=== PATIENT | male | born 1975 | race Caucasian/White ===

== ENCOUNTER 2017-04-13 09:43 | Observation (INO) | payer BC ==
[2017-04-13] VITALS (11 sets, daily range): BP systolic 122–172; BP diastolic 76–100; PULSE 50–72; RESP 15–18; TEMP 97.6–98.1; O2SAT 96–98
[~2017-04-13] VITALS: Ht 165.1 cm; Wt 90.0 kg
[2017-04-13] MEDS ORDERED: ASPIRIN 81 MG CHEW TAB PO ONE (10:30)
[2017-04-13] MEDS ORDERED: NITROGLYCERIN 2% OINT 1 GM PACKET TOP ONE (10:30)
[2017-04-13] MEDS ORDERED: SODIUM CHLORIDE 0.9% FLUSH 10 ML FLUSH IVF PRN (10:30)
[2017-04-13] MEDS ORDERED: MORPHINE SULFATE 4 MG/ML INJ IV PUSH ONE (10:30)
--- NOTE | 2017-04-13 10:38 | RADRPT ---
EXAM DATE/TIME: 04/13/2017 10:11 [place] COMPARISON: No previous studies available for comparison. INDICATIONS : Chest pain. Patient c/o burning in chest, and also was feeling dizziness. MEDICAL HISTORY : None. SURGICAL HISTORY : None. ENCOUNTER: Initial ACUITY: 1 day PAIN SCORE: 0/10 LOCATION: Bilateral chest FINDINGS: A single view of the chest demonstrates the lungs to be symmetrically aerated without evidence of mas s, infiltrate or effusion. Mild elevation of the right hemidiaphragm. The cardiomediastinal contours are unremarkable. Osseous structures are intact. CONCLUSION: No acute disease. Edvin Mcdonnell Jr., MD on April 13, 2017 at 10:31 Board Certified Radiologist. This report was verified electronically.
[2017-04-13 10:39] LABS: AUTOMATED NEUTROPHIL # 4.4 TH/MM3 (1.8-7.7); BASOPHIL % 0.6 % (0.0-2.0); EOSINOPHIL # 0.1 TH/MM3 (0-0.4); EOSINOPHIL % 1.8 % (0.0-4.0); HEMATOCRIT 42.1 % (39.0-51.0); HEMO FLAGS DIFF FINAL; LYMPH % 34.3 % (9.0-44.0); LYMPHOCYTE # 2.8 TH/MM3 (1.0-4.8); MEAN CELL VOLUME 89.8 FL (80.0-100.0); MEAN CORPUSCULAR HEMOGLOBIN 30.6 PG (27.0-34.0); MEAN CORPUSCULAR HGB CONC 34.1 % (32.0-36.0); MONO % 9.8 % (0.0-8.0); NEUT % 53.5 % (16.0-70.0); PLATELET COUNT 233 TH/MM3 (150-450); RED BLOOD COUNT 4.69 MIL/MM3 (4.50-5.90); RED CELL DISTRIBUTION WIDTH 13.4 % (11.6-17.2); WHITE BLOOD COUNT 8.2 TH/MM3 (4.0-11.0)
--- NOTE | 2017-04-13 10:43 | PD ---
HPI . Lightheadedness Chief Complaint: Dizziness Time Seen by Provider: 10:16 Travel History International Travel<30 days: No Contact w/Intl Traveler<30days: No Traveled to known affect area: No History of Present Illness HPI This patient presents with the chief complaint of lightheadedness. It is associated with a pressure/burning sensation in his chest. He also states that his arms feel like they have ice in them. This all started about 8 or 8:15 while he was at work. 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 However, his chest discomfort persists. He states that it is very mild. His risk factor for coronary artery disease is coronary artery disease in his mother. He does not smoke or use illicit drugs. He has no medical history of hypertension, diabetes or hypercholesterolemia. PFSH Past Medical History Medical History: Denies Significant Hx Influenza Vaccination: No Past Surgical History Other Surgery: Yes (RIGHT THUMB SURGERY) Social History Alcohol Use: Yes (RARELY) Tobacco Use: No Substance Use: No Allergies-Medications (Allergen,Severity, Reaction): Coded Allergies: naproxen (Verified Allergy, Intermediate, PRURITUS, 04/13/17) Reported Meds & Prescriptions Reported Meds & Active Scripts Active No Active Prescriptions or Reported Medications Review of Systems Except as stated in HPI: all other systems reviewed are Neg General / Constitutional: No: Fever, Chills Eyes: No: Blurred Vision HENT: Positive: Lightheadedness Cardiovascular: Positive: Chest Pain or Discomfort Respiratory: No: Shortness of Breath Gastrointestinal: No: Nausea Neurologic: Positive: Paresthesia Physical Exam Narrative GENERAL: Awake and alert and in no acute distress. SKIN: Warm and dry. HEAD: Atraumatic. Normocephalic. EYES: Pupils equal and round. Extraocular movements are intact. ENT: No nasal bleeding or discharge. Mucous membranes pink and moist. NECK: Trachea midline. Neck is supple. CARDIOVASCULAR: Regular rate and rhythm. Heart sounds are normal. RESPIRATORY: No accessory muscle use. Lungs are clear with good air movement throughout. Chest wall is nontender. GASTROINTESTINAL: Abdomen soft, non-tender, nondistended. MUSCULOSKELETAL: No obvious deformities. No edema. NEUROLOGICAL: Awake and alert. No obvious cranial nerve deficits. Motor grossly within normal limits. Normal speech. PSYCHIATRIC: Appropriate mood and affect; insight and judgment normal. Data Data Last Documented VS Vital Signs Date Time Temp Pulse Resp B/P (MAP) Pulse Ox O2 Delivery O2 Flow Rate FiO2 04/13/17 10:32 Room Air 04/13/17 10:13 56 16 161/78 (105) 97 04/13/17 09:46 98.1 Orders Orders Electrocardiogram (04/13/17 09:49) Complete Blood Count With Diff (04/13/17 09:49) Basic Metabolic Panel (Bmp) (04/13/17 09:49) Ckmb (Isoenzyme) Profile (04/13/17 09:49) Troponin I (04/13/17 09:49) Chest, Single Ap (04/13/17 09:49) Basic Metabolic Panel (Bmp) (04/13/17 10:24) Ckmb (Isoenzyme) Profile (04/13/17 10:24) Magnesium (Mg) (04/13/17 10:24) Prothrombin Time / Inr (Pt) (04/13/17 10:24) Act Partial Throm Time (Ptt) (04/13/17 10:24) Troponin I (04/13/17 10:24) Ecg Monitoring (04/13/17 10:24) Iv Access Insert/Monitor (04/13/17 10:24) Oximetry (04/13/17 10:24) Aspirin Chew (Aspirin Chew) (04/13/17 10:30) Morphine Inj (Morphine Inj) (04/13/17 10:30) Nitroglycerin 2% Oint (Nitroglycerin 2% (04/13/17 10:30) Sodium Chloride 0.9% Flush (Ns Flush) (04/13/17 10:30) CKMB (04/13/17 10:20) CKMB% (04/13/17 10:20) Admit Order (Ed Use Only) (04/13/17 11:13) Labs Laboratory Tests Test 04/13/17 10:20 White Blood Count 8.2 TH/MM3 Red Blood Count 4.69 MIL/MM3 Hemoglobin 14.3 GM/DL Hematocrit 42.1 % Mean Corpuscular Volume 89.8 FL Mean Corpuscular Hemoglobin 30.6 PG Mean Corpuscular Hemoglobin Concent 34.1 % Red Cell Distribution Width 13.4 % Platelet Count 233 TH/MM3 Mean Platelet Volume 7.6 FL Neutrophils (%) (Auto) 53.5 % Lymphocytes (%) (Auto) 34.3 % Monocytes (%) (Auto) 9.8 % Eosinophils (%) (Auto) 1.8 % Basophils (%) (Auto) 0.6 % Neutrophils # (Auto) 4.4 TH/MM3 Lymphocytes # (Auto) 2.8 TH/MM3 Monocytes # (Auto) 0.8 TH/MM3 Eosinophils # (Auto) 0.1 TH/MM3 Basophils # (Auto) 0.0 TH/MM3 CBC Comment DIFF FINAL Differential Comment Blood Urea Nitrogen 10 MG/DL Creatinine 1.04 MG/DL Random Glucose 92 MG/DL Calcium Level 8.9 MG/DL Sodium Level 140 MEQ/L Potassium Level 4.2 MEQ/L Chloride Level 106 MEQ/L Carbon Dioxide Level 25.7 MEQ/L Anion Gap 8 MEQ/L Estimat Glomerular Filtration Rate 78 ML/MIN Total Creatine Kinase 209 U/L Creatine Kinase MB 2.1 NG/ML Troponin I LESS THAN 0.02 NG/ML MDM Medical Decision Making Medical Screen Exam Complete: Yes Emergency Medical Condition: Yes Interpretation(s) EKG has a sinus rhythm with bradycardia at 56. There is no ST segment elevation or depression. Differential Diagnosis Differential diagnosis of chest pain includes but is not limited to musculoskeletal pain, pulmonary embolism, acute coronary syndrome, pneumonia, pleurisy Narrative Course This patient presents with lightheadedness and chest discomfort which started while he was at work this morning. I will do an initial cardiac evaluation. If it is negative, I will admit him to the chest pain center. In the meantime, the patient is being treated with aspirin, nitroglycerin and morphine. CBC & BMP Diagram 04/13/17 10:20 Calcium Level 8.9 Cardiac enzymes were negative. Diagnosis Primary Impression: Chest pain Qualified Codes: R07.9 - Chest pain, unspecified Additional Impression: Lightheadedness Admitting Information Admitting Physician Requests: Observation Scripts No Active Prescriptions or Reported Meds Condition: Stable Marissa Woods MD Apr 13, 2017 10:42
[2017-04-13 10:47] LABS: ANION GAP 8 MEQ/L (5-15); BICARBONATE 25.7 MEQ/L (21.0-32.0); BLOOD UREA NITROGEN 10 MG/DL (7-18); CHLORIDE 106 MEQ/L (98-107); GLOMERULAR FILTRATION RATE 78 ML/MIN (>89); POTASSIUM 4.2 MEQ/L (3.5-5.1); SODIUM (NA) 140 MEQ/L (136-145)
[2017-04-13 10:50] LABS: CREATINE KINASE 209 U/L (39-308)
[2017-04-13 11:03] LABS: CKMB 2.1 NG/ML (0.5-3.6)
[2017-04-13] MEDS ORDERED: NITROGLYCERIN 0.4 MG SL 25 TABS/BTL SL PRN (13:00)
[2017-04-13] MEDS ORDERED: ACETAMINOPHEN 500 MG CPLT PO PRN (14:00)
[2017-04-13] MEDS ORDERED: ONDANSETRON HCL 4 MG/2 ML VIAL IV PRN (14:00)
--- NOTE | 2017-04-13 14:31 | HHI.HP ---
HPI Primary Care Physician Lopez Manriquez MD Chief Complaint Chest pressure History of Present Illness 42-year-old male with no significant past medical history presents to emergency room for further evaluation of chest pain. Onset 8:15 while at work. Location substernal. Characterized as chest pressure. No radiation. No associated symptoms of nausea, vomiting, diaphoresis, or shortness of breath. Did not hurt to take a deep breath. No relieving or movement or pain better or worse. No known precipitating or relieving factors. Denies similar pain in the past. Review of Systems General: No fatigue,weakness, fever, chills, or recent illness change. Has been in his general state of health. HEENT: Current headache after receiving nitroglycerin. Not prone to frequent headaches. No vision changes, no nasal congestion or drainage, no dysphasia CV: As stated above. Denies any current chest pain or pressure. No palpitations, intermittent leg pain, or dizziness. RESP: No SOB, cough, sputum production, or history of asthma GI: No nausea, vomiting, bowel changes, or diarrhea. No unintentional weight gain or weight loss : No dysuria EXT: No lower leg edema, intermittent numbness and tingling bilateral hands he relates to operating heavy equipment daily MS: No discomfort or change in ROM, no injury, no fall, no trauma NEURO: No difficulty with balance, LOC, motor/sensory deficits PSYCH: No anxiety, depression, or situational stress SKIN: No rashes, no concerning lesions Past Family Social History Allergies: Coded Allergies: naproxen (Verified Allergy, Intermediate, PRURITUS, 04/13/17) Past Medical History None Past Surgical History Right thumb surgery-age 18 Reported Medications Reported Meds & Active Scripts Active No Active Prescriptions or Reported Medications Active Ordered Medications Current Medications Medications (Trade) Dose Ordered Sig/Jhony Route Start Time Stop Time Status Last Admin (NS Flush) 2 ml UNSCH PRN IVF 04/13/17 10:30 04/13/17 10:44 (NS Flush) 2 ml BID IV FLUSH 04/13/17 21:00 (Tylenol) 500 mg Q4H PRN PO 04/13/17 14:00 (Zofran Inj) 4 mg Q6H PRN IV 04/13/17 14:00 (Nitrostat Sl) 0.4 mg Q5M PRN SL 04/13/17 13:00 Family History Noncontributory for early onset cardiovascular disease. Social History No known diabetes, hypertension, hyperlipidemia, or personal coronary artery disease. Lifelong nonsmoker. Rare alcohol use. Denies any illegal drug use. Endorses an active lifestyle. Past cardiac testing None Physical Exam Vital Signs Vital Signs Date Time Temp Pulse Resp B/P (MAP) Pulse Ox O2 Delivery O2 Flow Rate FiO2 04/13/17 14:00 04/13/17 13:00 59 15 141/78 (99) 97 Room Air 04/13/17 12:00 68 15 133/76 (95) 97 Room Air 04/13/17 11:00 57 16 139/82 (101) 98 Room Air 04/13/17 10:32 Room Air 04/13/17 10:13 56 16 161/78 (105) 97 Room Air 04/13/17 09:46 98.1 62 15 172/100 (124) 96 Physical Exam GENERAL: Alert WN, WD, NAD, pleasant, male HEAD: NC, AT EYES: Sclera clear, conjunctiva without injection, pupils equal and round ENT: Mucous membranes pink and moist NECK: Supple, no masses, trachea midline CV: RRR, without murmur, rub, gallop, no JVD, S1-S2 no S3-S4. No carotid bruits. RESP: Clear lungs throughout bilateral, no crackles, wheeze, rhonchi, symmetrical chest rise, nonlabored, able to speak in full sentences ABD: Soft, NT, ND, no masses, positive bowel tones BACK: No CVAT, no scoliosis EXT: Pulses +24, no dependent edema MS: Normal tone 4 extremities, nontender, no obvious deformities, full range of motion NEURO: CN II through CN XII grossly intact, motor strength 5/5, gait WNL PSYCH: A+O 3, pleasant affect, appropriate speech, appropriate mood and affect , insight and judgment SKIN: Normal turgor, normal texture, no lesions, no rashes, brisk cap refill, even hair distribution Laboratory Laboratory Tests Test 04/13/17 10:20 04/13/17 13:35 White Blood Count 8.2 Red Blood Count 4.69 Hemoglobin 14.3 Hematocrit 42.1 Mean Corpuscular Volume 89.8 Mean Corpuscular Hemoglobin 30.6 Mean Corpuscular Hemoglobin Concent 34.1 Red Cell Distribution Width 13.4 Platelet Count 233 Mean Platelet Volume 7.6 Neutrophils (%) (Auto) 53.5 Lymphocytes (%) (Auto) 34.3 Monocytes (%) (Auto) 9.8 Eosinophils (%) (Auto) 1.8 Basophils (%) (Auto) 0.6 Neutrophils # (Auto) 4.4 Lymphocytes # (Auto) 2.8 Monocytes # (Auto) 0.8 Eosinophils # (Auto) 0.1 Basophils # (Auto) 0.0 CBC Comment DIFF FINAL Differential Comment Blood Urea Nitrogen 10 Creatinine 1.04 Random Glucose 92 Calcium Level 8.9 Sodium Level 140 Potassium Level 4.2 Chloride Level 106 Carbon Dioxide Level 25.7 Anion Gap 8 Estimat Glomerular Filtration Rate 78 Total Creatine Kinase 209 Creatine Kinase MB 2.1 Troponin I LESS THAN 0.02 Result Diagram: 04/13/17 1020 04/13/17 1020 Imaging Last Impressions Chest X-Ray 04/13/17 0949 Signed Impressions: Service Date/Time: Thursday, April 13, 2017 10:11 - CONCLUSION: No acute disease. Edvin Mcdonnell Jr., MD Course EKG Normal sinus bradycardia, left axis deviation, nonspecific ST changes inferiorly Caprini VTE Risk Assessment Caprini VTE Risk Assessment: No/Low Risk (score <= 1) Caprini Risk Assessment Model Point Value = 1 Point Value = 2 Point Value = 3 Point Value = 5 Age 41-60 Minor surgery BMI > 25 kg/m2 Swollen legs Varicose veins or History of unexplained or recurrent spontaneous Oral contraceptives or hormone replacement Sepsis (< 1 month) Serious lung disease, including pneumonia (< 1 month) Abnormal pulmonary function Acute myocardial infarction Congestive heart failure (< 1 month) History of inflammatory bowel disease Medical patient at bed rest Age 61-74 Arthroscopic surgery Major open surgery (> 45 min) Laparoscopic surgery (> 45 min) Malignancy Confined to bed (> 72 hours) Immobilizing plaster cast Central venous access Age >= 75 History of VTE Family history of VTE Factor V Leiden Prothrombin [id number] Lupus anticoagulant Anticardiolipin antibodies Elevated serum homocysteine Heparin-induced thrombocytopenia Other congenital or acquired thrombophilia Stroke (< 1 month) Elective arthroplasty Hip, pelvis, or leg fracture Acute spinal cord injury (< 1 month) Prophylaxis Regimen Total Risk Factor Score Risk Level Prophylaxis Regimen 0-1 Low Early ambulation 2 Moderate Order ONE of the following: *Sequential Compression Device (SCD) *Heparin 5000 units SQ BID 3-4 Higher Order ONE of the following medications: *Heparin 5000 units SQ TID *Enoxaparin/Lovenox 40 mg SQ daily (WT < 150 kg, CrCl > 30 mL/min) *Enoxaparin/Lovenox 30 mg SQ daily (WT < 150 kg, CrCl > 10-29 mL/min) *Enoxaparin/Lovenox 30 mg SQ BID (WT < 150 kg, CrCl > 30 mL/min) AND/OR *Sequential Compression Device (SCD) 5 or more Highest Order ONE of the following medications: *Heparin 5000 units SQ TID (Preferred with Epidurals) *Enoxaparin/Lovenox 40 mg SQ daily (WT < 150 kg, CrCl > 30 mL/min) *Enoxaparin/Lovenox 30 mg SQ daily (WT < 150 kg, CrCl > 10-29 mL/min) *Enoxaparin/Lovenox 30 mg SQ BID (WT < 150 kg, CrCl > 30 mL/min) AND *Sequential Compression Device (SCD) Assessment and Plan Assessment and Plan #1 Atypical chest pain-rule out with 3 sets of EKGs, cardiac enzymes, and monitor on telemetry. Will be seen and evaluated by Dr. Carlotta Fisher. Discussed the likelihood of completing exercise stress test in morning. Patient agreeable to plan of care. If unremarkable, will later discharge in morning. Sera Nunez Apr 13, 2017 14:31
[2017-04-13 14:37] LABS: CREATINE KINASE 174 U/L (39-308)
[2017-04-13 14:49] LABS: CKMB 1.7 NG/ML (0.5-3.6)
--- NOTE | 2017-04-13 16:29 | EKG ---
Date Performed: 04/13/2017 Time Performed: 10:09:16 PTAGE: 42 years EKG: SINUS BRADYCARDIA BORDERLINE ECG NO PREVIOUS TRACING DOCTOR: Carlotta Fisher Interpretating Date/Time 04/13/2017 16:27:17
--- NOTE | 2017-04-13 16:29 | EKG ---
Date Performed: 04/13/2017 Time Performed: 13:37:30 PTAGE: 42 years EKG: SINUS BRADYCARDIA BORDERLINE ECG Since previous tracing, no significant change noted NO PREVIOUS TRACING DOCTOR: Carlotta Fisher Interpretating Date/Time 04/13/2017 16:28:42
[2017-04-13 17:19] LABS: ANION GAP 8 MEQ/L (5-15); BICARBONATE 28.2 MEQ/L (21.0-32.0); BLOOD UREA NITROGEN 9 MG/DL (7-18); CHLORIDE 106 MEQ/L (98-107); GLOMERULAR FILTRATION RATE 90 ML/MIN (>89); POTASSIUM 4.1 MEQ/L (3.5-5.1); SODIUM (NA) 142 MEQ/L (136-145)
[2017-04-13 17:20] LABS: CREATINE KINASE 169 U/L (39-308)
[2017-04-13] MEDS: SODIUM CHLORIDE 0.9% FLUSH 10 ML FLUSH IV FLUSH SCH (21:39)
[2017-04-14] VITALS (7 sets, daily range): BP systolic 115–130; BP diastolic 64–77; PULSE 47–64; RESP 16; TEMP 98; O2SAT 96–97
[2017-04-14] MEDS: SODIUM CHLORIDE 0.9% FLUSH 10 ML FLUSH IV FLUSH SCH (07:27)
--- NOTE | 2017-04-14 09:15 | HHI.DCPOC ---
Discharge Care Plan Diagnosis: (1) Atypical chest pain Goals to Promote Your Health * To prevent worsening of your condition and complications * To maintain your health at the optimal level Directions to Meet Your Goals Take your medications as prescribed Follow your dietary instruction Follow activity as directed Keep your appointments as scheduled Take your immunizations and boosters as scheduled If your symptoms worsen call your PCP, if no PCP go to Urgent Care Center or Emergency Room Smoking is Dangerous to Your Health. Avoid second hand smoke Call the 24-hour hour crisis hotline for domestic abuse at Sera Nunez Apr 14, 2017 09:15
[2017-04-14 09:50] LABS: APTT (PATIENT) 25.2 SEC (24.3-30.1)
[2017-04-14 10:20] LABS: CREATINE KINASE 138 U/L (39-308)
--- NOTE | 2017-04-14 10:24 | HHI.DS ---
Discharge Summary Admission Date Apr 13, 2017 at 11:15 Discharge Date: Apr 14, 2017 Admitting Diagnosis Atypical chest pain (1) Atypical chest pain Diagnosis: Principal ICD Codes: R07.89 - Other chest pain Status: Acute Brief History 42-year-old male with no significant past medical history presents to the emergency room for further evaluation of chest pain. Ruled out with 3 sets of EKGs and cardiac enzymes. Proceed with exercise stress test that did not suggest ischemia. Patient had previously scheduled an appointment with PCP for annual checkup, scheduled 04/14/2017. Discharged in a.m. and encouraged to follow-up with PCP. CBC/BMP: 04/13/17 1020 04/13/17 1415 Significant Findings Laboratory Tests Test 04/13/17 10:20 04/13/17 13:35 04/13/17 14:15 04/14/17 08:36 Monocytes (%) (Auto) 9.8 % (0.0-8.0) Estimat Glomerular Filtration Rate 78 ML/MIN (>89) Troponin I LESS THAN 0.02 NG/ML LESS THAN 0.02 NG/ML LESS THAN 0.02 NG/ML Imaging Last Impressions Chest X-Ray 04/13/17 0937 Signed Impressions: Service Date/Time: Thursday, April 13, 2017 10:11 - CONCLUSION: No acute disease. Edvin Mcdonnell Jr., MD PE at Discharge GENERAL: Alert, NAD CV: RRR, without murmur. RESP: Clear lungs throughout bilateral NEURO: CN II through CN XII grossly intact, motor strength 5/5, gait WNL PSYCH: A+O 3, pleasant affect SKIN: Normal turgor, normal texture Pt Condition on Discharge: Good Discharge Disposition: Discharge Home Discharge Instructions DIET: Follow Instructions for: Heart Healthy Diet Activities you can perform: Regular-No Restrictions Sera Nunez Apr 14, 2017 10:24
[2017-04-14 10:33] LABS: CKMB 1.1 NG/ML (0.5-3.6)
--- NOTE | 2017-04-15 18:19 | TR ---
Date Performed: 04/14/2017 Time Performed: 08:03:19 DOCTOR: Carlotta Fisher DRUG LIST: CLINICAL HISTORY: REASON FOR TEST: Chest pain REASON FOR ENDING: OBSERVATION: CONCLUSION: Emanuel protocol completed. Stopped sec to exceeding target heart rate and leg fatigue . Maximum YD=665 Target HR Achieved=91.0% Maximum VN=582/80 Total Exercise Time=7:31. No reprod chest pain. Rare PVC. Upsloping st segments, no st changes to sugg ischemia. Normal bp response. Great exe rcise tolerance. Recovery quick and unremarkable. COMMENTS:
--- NOTE | 2017-04-15 18:22 | EKG ---
Date Performed: 04/13/2017 Time Performed: 16:29:09 PTAGE: 42 years EKG: SINUS BRADYCARDIA BORDERLINE ECG Since PREVIOUS TRACING , no significant change noted PREVIOUS TRACIN04/13/2017 13.37 DOCTOR: Carlotta Fisher Interpretating Date/Time 04/15/2017 18:21:44
== END 2017-04-14 10:06 | disposition home or self-care (01) ==
LOC: NEPC 09:43 → NEDA 11:15 → NEPHCDU 14:28
PROVIDERS: ADMIT Internal Medicine Interventional Cardiology; ATTEND Internal Medicine Interventional Cardiology
DX: R07.89 Other chest pain (principal); R42 Dizziness and giddiness; I48.91 Unspecified atrial fibrillation
CPT/HCPCS: 71010; 80048; 82550; 82552; 83735; 84484; 85025; 85610; 85730; 93005; 93017; 99285; G0378